=== PATIENT | male | born 2000 | race Caucasian/White ===

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

== ENCOUNTER 2022-02-02 08:26 | Emergency (ER) | payer BC, MEDICAID ==
--- NOTE | 2022-02-02 09:18 | ED Upper Extremity ---
General Chief Complaint: Upper Extremity Stated Complaint: RT THUMB SWELLING Nursing Triage Note: Patient has been brought to ER by care staff with a worsening infection. Patient was in the urgent care yesterday and started on antibiotic but it looks worse today. Source: patient Exam Limitations: no limitations History of Present Illness Date Seen by Provider: Feb 02, 2022 Time Seen by Provider: 08:45 Initial Comments Patient is 21 yo R hand male residential care with h/o Downs Syndrome, and bipolar disorder who presents with an infected R thumb pad. Infection started 4 days ago. Patient seen yesterday at local [facility] and started on Bactrim. Infection worsened over the past 24 hours. H/o is the patient's careworker and father. Onset: just prior to arrival Severity: mild Pain/Injury Location: right thumb Method of Injury: other Modifying Factors: Improves With Other Allergies and Home Medications Allergies Coded Allergies: amoxicillin (Verified Allergy, Unknown, Rash, 09/10/21) Patient Home Medication List Home Medication List Reviewed: No Review of Systems Constitutional: see HPI Musculoskeletal: see HPI Past Bqudrje-Axkzto-Vrkdvm Hx Patient Social History Tobacco Use?: No Use of E-Cig and/or Vaping dev: No Substance use?: No Alcohol Use?: No Pt feels they are or have been: Unable to obtain Physical Exam Vital Signs Vital Signs - First Documented 02/02/22 08:56 Temp 36.1 Pulse 75 Resp 18 B/P (MAP) 118/89 (99) Pulse Ox 98 Capillary Refill : Height, Weight, BMI Height: 4'3.00" Weight: 105lbs. oz. [id number]; 14.00 BMI Method:Stated General Appearance: WD/WN, no apparent distress Hand: Right (thumn infected R thumb pad/ felon.) Progress/Results/Core Measures Results/Orders Vital Signs/I&O 02/02/22 08:56 Temp 36.1 Pulse 75 Resp 18 B/P (MAP) 118/89 (99) Pulse Ox 98 Blood Pressure Mean: 99 Departure Communication (Admissions) Case discussed with [facility] transfer center who accepts patient to the ER for surgical evaluation. Patient to be discharged to residential care facility to allow parents to drive patient directly. Patient to remain NPO. Impression Primary Impression: Infection of thumb Disposition: XFER [facility]M HOSP Condition: Stable Transfer Transfer Reason: Exceeds level of care Time Spoke to Accepting Phy: 09:00 (Dr. Keyshawn Lawson) Departure-Patient Inst. Referrals: ADELINA OSHEA MD (PCP) Primary Care Physician Add. Discharge Instructions: Do not allow Walter to eat and drink. Do not take additional medications. Juan Carlos is to be evaluated later this afternoon at [facility] emergency department for surgical evaluation`. All discharge instructions reviewed with patient and/or family. Voiced understanding. KARUNA RIVERA DO Feb 02, 2022 09:18
[2022-02-02 09:32] VITALS: BP 118/89
== END 2022-02-02 09:40 | disposition short-term general hospital (02) ==
LOC: EDUNIT# 08:26 → ER FS 08:27
DX: L08.9 Local infection of the skin and subcutaneous tissue, unspecified (principal)

== ENCOUNTER → 2022-11-04 | Outpatient (CLI) | payer BC, MEDICAID ==
[2022-11-04 17:12] LABS: BASOPHILS # (AUTO) 0.1 10^3/uL (0.0-0.1); BASOPHILS % (AUTO) 1 % (0-10); EOSINOPHILS # (AUTO) 0.1 10^3/uL (0.0-0.3); EOSINOPHILS % (AUTO) 1 % (0-10); HEMATOCRIT 45 % (40-54); HEMOGLOBIN 14.9 g/dL (13.3-17.7); LYMPHOCYTES # (AUTO) 3.1 10^3/uL (1.0-4.0); LYMPHOCYTES % (AUTO) 50 % (12-44); MEAN CORPUSCULAR HEMOGLOBIN 32 pg (25-34); MEAN CORPUSCULAR HGB CONC 33 g/dL (32-36); MEAN CORPUSCULAR VOLUME 97 fL (80-99); MONOCYTES # (AUTO) 0.3 10^3/uL (0.0-1.0); MONOCYTES % (AUTO) 5 % (0-12); NEUTROPHILS # (AUTO) 2.6 10^3/uL (1.8-7.8); NEUTROPHILS % (AUTO) 43 % (42-75); PLATELET COUNT 293 10^3/uL (130-400); WHITE BLOOD COUNT 6.2 10^3/uL (4.3-11.0)
[2022-11-04 17:31] LABS: ATYPICAL LYMPHOCYTES 5 %; BAND NEUTROPHILS 5 %; BASOPHILS % (MANUAL) 1 %; LYMPHOCYTES % (MANUAL) 48 %; MONOCYTES % (MANUAL) 5 %; NEUTROPHILS % (MANUAL) 36 %; PLATELET ESTIMATE NORMAL; RBC MORPH NORMAL
[2022-11-04 17:33] LABS: ALBUMIN 4.1 GM/DL (3.2-4.5); BILIRUBIN,TOTAL 0.2 MG/DL (0.1-1.0); CALCIUM 9.3 MG/DL (8.5-10.1); CREATININE SERUM 1.08 MG/DL (0.60-1.30); POTASSIUM 3.9 MMOL/L (3.6-5.0); TOTAL PROTEIN 7.6 GM/DL (6.4-8.2)
--- NOTE | 2022-11-04 17:57 | Diagnostic Imaging Report ---
INDICATION: Cough PA and lateral chest obtained at 0445 p.m. There is poststernotomy change. Heart is normal in size. Mediastinal silhouette is unremarkable. There is some mild infiltrate in the right lung base which may represent early pneumonia. There is a shunt catheter over the right hemithorax with partial calcification of its tubing. There is no pneumothorax or pleural fluid. IMPRESSION: Mild infiltrate in right lung base, which may represent early pneumonia. Follow-up is recommended. Dictated by: Dictated on workstation # [id number]
== END ==
LOC: RAD FS 16:35
PROVIDERS: ATTEND Registered Nurse Emergency
DX: R06.00 Dyspnea, unspecified (principal); R05.1 Acute cough
CPT/HCPCS: 36415; 71046; 80053; 85007; 85027; 86141